=== PATIENT | female | born 1965 | race Caucasian/White ===

== ENCOUNTER 2018-05-17 05:58 | Day surgery (SDC) | payer MEDICAID ==
[2018-05-16 11:04] LABS: BASOPHILS # (AUTO) 0.1 K/uL (0.00-0.22); BASOPHILS % (AUTO) 1.2 % (0.0-2.0); EOSINOPHILS % (AUTO) 0.8 % (0.0-4.0); HEMOGLOBIN 13.8 g/dL (12.0-16.0); LYMPHOCYTES # (AUTO) 1.9 K/uL (2.5-16.5); MEAN CORPUSCULAR HEMOGLOBIN 31 pg (27-31); MEAN CORPUSCULAR HGB CONC 34 g/dL (33-37); MEAN CORPUSCULAR VOLUME 90.6 fL (80-94); MONOCYTES # (AUTO) 0.4 K/uL (0.8-1.0); MONOCYTES % (AUTO) 6.9 % (1.7-9.3); NEUTROPHILS # (AUTO) 3.2 K/uL (1.8-7.7); NEUTROPHILS % (AUTO) 57.1 % (42.2-75.2); PLATELET COUNT (AUTO) 239 K/uL (140-450); RED BLOOD CELL COUNT(AUTO) 4.53 MIL/uL (4.20-5.40); RED CELL DISTRIBUTION WIDTH 13.4 % (11.6-13.7); WHITE BLOOD COUNT (AUTO) 5.6 K/uL (4.8-10.8)
[2018-05-16 11:15] LABS: PROTHROMBIN TIME 10.3 secs (10.8-13.4)
[2018-05-16 12:39] LABS: ALBUMIN 3.4 g/dL (3.4-5.0); ANION GAP 12.5 (8-16); CARBON DIOXIDE 28.4 mmol/L (21-32); CREATININE 0.7 mg/dL (0.6-1.3); POTASSIUM 3.9 mmol/L (3.5-5.1); TOTAL BILIRUBIN 0.6 mg/dL (0.0-1.0)
[~2018-05-17] VITALS: Ht 162.6 cm; Wt 86.2 kg
[2018-05-17] MEDS ORDERED: ENAL-197 PO (07:58)
[2018-05-17] MEDS ORDERED: MIDAZOLAM 2 MG/2 ML VIAL ONE (09:32)
[2018-05-17] MEDS ORDERED: fentaNYL 0.05 MG/ML VIAL ONE (09:32)
[2018-05-17] MEDS ORDERED: LIDOCAINE/EPI MPF 1%1:200000 30 ML VIAL INJ ONE (09:39)
[2018-05-17] MEDS ORDERED: BUPIVACAINE-MPF/EPI 0.25% 30 ML VIAL INJ ONE (09:40)
[2018-05-17] MEDS ORDERED: KETOROLAC 30 MG/ML VIAL ONE (09:42)
[2018-05-17] MEDS ORDERED: NACL 0.9% 1,000 ML IV SCH (10:39)
[2018-05-17] MEDS ORDERED: MORPHINE SULFATE 4 MG/ML SYR IV PRN (10:40)
[2018-05-17] MEDS ORDERED: ONDANSETRON 4 MG/2 ML VIAL IV PRN (10:40)
[2018-05-17] MEDS ORDERED: MORPHINE SULFATE 2 MG/ML SYR IVP PRN (10:40)
[2018-05-17] MEDS ORDERED: HYDROcodone/APAP 5/325 MG 1 TAB TAB PO PRN (10:40)
[2018-05-17] MEDS ORDERED: HYDROmorphone 1 MG/ML AMP IVP PRN (10:40)
== END 2018-05-17 12:00 | disposition home or self-care (01) ==
LOC: MDS 05:58 → MMU 06:20 → MDS 12:00
PROVIDERS: ATTEND Surgery
DX: C50.412 Malignant neoplasm of upper-outer quadrant of left female breast (principal); I10 Essential (primary) hypertension; M19.90 Unspecified osteoarthritis, unspecified site; G43.909 Migraine, unspecified, not intractable, without status migrainosus; F41.9 Anxiety disorder, unspecified; Z90.49 Acquired absence of other specified parts of digestive tract; Z90.710 Acquired absence of both cervix and uterus; Z98.51 Tubal ligation status; Z98.890 Other specified postprocedural states; Z79.899 Other long term (current) drug therapy; Z82.49 Family history of ischemic heart disease and other diseases of the circulatory system
CPT/HCPCS: 36415; 36556; 71045; 76937; 77001; 80053; 85025; 85610; 85730; 86886; 86900; 86901; 93005; 96409; C1751; J0690; J1644; J1885; J2001; J2250; J3010; J3490; J7030; J7060; J7120; Q0092